=== PATIENT | female | born 1985 | race Caucasian/White ===

== ENCOUNTER 2019-08-29 21:22 | Emergency (ER) | payer MEDICAID, OTHER ==
[~2019-08-29] VITALS: Ht 162.6 cm; Wt 56.0 kg
[~2019-08-29 21:22] MED LIST: ALBU6.7H9 INH; METH4TAB3 PO; NO HOME MEDS
[2019-08-29 21:26] VITALS: BP 157/110
[2019-08-29] MEDS ORDERED: CEPH500C5 PO (21:54)
[2019-08-29] MEDS ORDERED: SULF1TAB49 PO (21:54)
== END 2019-08-29 22:02 | disposition home or self-care (01) ==
LOC: ER 21:23
DX: S93.492A Sprain of other ligament of left ankle, initial encounter (principal); L03.116 Cellulitis of left lower limb; F32.9 Major depressive disorder, single episode, unspecified; F15.90 Other stimulant use, unspecified, uncomplicated; Z86.69 Personal history of other diseases of the nervous system and sense organs; Z86.2 Personal history of diseases of the blood and blood-forming organs and certain disorders involving the immune mechanism; Z98.890 Other specified postprocedural states; Z60.2 Problems related to living alone; Z59.0 Homelessness; Z56.0 Unemployment, unspecified; Z88.5 Allergy status to narcotic agent; Z91.011 Allergy to milk products; Z79.899 Other long term (current) drug therapy; W01.0XXA Fall on same level from slipping, tripping and stumbling without subsequent striking against object, initial encounter; Y93.89 Activity, other specified; Y92.89 Other specified places as the place of occurrence of the external cause; Y99.8 Other external cause status
CPT/HCPCS: 73610; 99284

== ENCOUNTER 2019-11-30 04:14 | Emergency (ER) | payer OTHER ==
--- NOTE | 2019-11-30 04:29 | NUR ---
Onset around 3 weeks ago.
[2019-11-30] MEDS ORDERED: sulfamethoxazole/trimethoprim DS (800/160mg) tablet PO ONE (04:55)
[2019-11-30] MEDS ORDERED: SULF1TAB49 PO (04:55)
[2019-11-30 05:20] VITALS: BP 129/85
== END 2019-11-30 05:15 | disposition home or self-care (01) ==
LOC: ER 04:14
DX: L03.113 Cellulitis of right upper limb (principal); F15.90 Other stimulant use, unspecified, uncomplicated; F17.200 Nicotine dependence, unspecified, uncomplicated; Z59.0 Homelessness; Z56.0 Unemployment, unspecified; Z88.5 Allergy status to narcotic agent; Z91.011 Allergy to milk products
CPT/HCPCS: 99283